=== PATIENT | female | born 1965 | race Caucasian/White ===

== ENCOUNTER 2018-09-18 12:08 | Emergency (ER) | payer SELFPAY ==
--- NOTE | 2018-09-18 15:37 | RAD REPORT ---
EXAM DESCRIPTION: CT - Head Brain Wo Cont - 09/18/2018 3:28 pm CLINICAL HISTORY: Headache COMPARISON: None. TECHNIQUE: Axial 5 mm thick images of the head were obtained without IV contrast. All CT scans are performed using dose optimization technique as appropriate and may include automated exposure control or mA/KV adjustment according to patient size. FINDINGS: No intracranial hemorrhage, mass, edema or shift of mid-line structures. No acute infarcti on changes seen. No abnormal extra-axial fluid collections. Ventricles are normal. Mastoid air cells and visualized portions of the paranasal sinuses are clear. No acute bony findings. IMPRESSION: Negative non-contrast CT head examination.
--- NOTE | 2018-09-18 16:10 | ER ---
Nurse's Notes [facility] Name: Charlene Lora Age: 52 yrs Sex: Female : 1965 Arrival Date: 09/18/2018 Time: 12:10 Bed 12 Private MD: Diagnosis: Radiculopathy, cervical region Presentation: 09/18 12:55 Presenting complaint: Patient states: Headache on R side since Tuesday, also reports ph neck pain and sore throat, denies fever, N/V. Transition of care: patient was not received from another setting of care. Onset of symptoms was September 18, 2018. Risk Assessment: Do you want to hurt yourself or someone else? Patient reports no desire to harm self or others. Care prior to arrival: None. 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 Vital Signs: 12:58 BP 114 / 85; Pulse 72; Resp 18; Temp 98.5; Pulse Ox 99% on R/A; Weight 56.7 kg; Height ph 5 ft. 6 in. (167.64 cm); 12:58 Body Mass Index 20.18 (56.70 kg, 167.64 cm) ph ED Course: 12:10 Patient arrived in ED. as 12:58 Triage completed. ph 12:59 Arm band placed on. ph 15:15 Palmira Harper FNP-C is [facility]. snw 15:15 Andrew Saba MD is Attending Physician. snw 15:[address] nj 15:[address] via wheelchair. nj 15:26 CT completed. Patient tolerated procedure well. Patient moved back from CT. nj 15:28 CT Head Brain wo Cont In Process Unspecified. EDMS 15:28 Krista He RN is Primary Nurse. tl3 Administered Medications: 16:41 Drug: Flexeril 10 mg Route: PO; tl3 16:42 Follow up: Response: Medication administered at discharge. tl3 16:42 Drug: TORadol 60 mg Route: IM; Site: right gluteus; tl3 16:42 Follow up: Response: Medication administered at discharge. tl3 Outcome: 16:10 Discharge ordered by MD. mosley 16:43 Patient left the ED. tl3 Signatures: Dispatcher [employer] EDPalmira Li, [employer] BOARD DRAFTER-Anita Quezada Patricia, RN RN [facility], Krista Lee, BJ RN tl3
--- NOTE | 2018-09-18 16:10 | EDPHYS ---
Physician Documentation [facility] Name: Charlene Lora Age: 52 yrs Sex: Female : 1965 Arrival Date: 09/18/2018 Time: 12:10 Bed 12 Private MD: ED Physician Andrew Saba HPI: 09/18 16:13 This 52 yrs old Female presents to ER via Ambulatory with complaints of snw Headache, Neck Pain, >24Hrs Old. 16:13 The patient complains of pain to the top of head and forehead. The patient describes snw the headache as a pressure, numbness. Onset: The symptoms/episode began/occurred gradually, 3 day(s) ago, and became persistent. Associated signs and symptoms: The patient has no apparent associated signs or symptoms. Severity of symptoms: At its worst the pain was mild, moderate. Headache History: Denies prior headaches. the symptoms are aggravated by wearing hard hat too tight. The patient has not experienced similar symptoms in the past. The patient has not recently seen a physician. 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 ROS: 16:12 Constitutional: Negative for fever, chills, and weight loss, Eyes: Negative for injury, snw pain, redness, and discharge, ENT: Negative for injury, pain, and discharge, Cardiovascular: Negative for chest pain, palpitations, and edema, Respiratory: Negative for shortness of breath, cough, wheezing, and pleuritic chest pain, Abdomen/GI: Negative for abdominal pain, nausea, vomiting, diarrhea, and constipation, Back: Negative for injury and pain, : Negative for injury, bleeding, discharge, and swelling, MS/Extremity: Negative for injury and deformity, Skin: Negative for injury, rash, and discoloration, Neuro: Negative for headache, weakness, numbness, tingling, and seizure. 16:12 Neck: Positive for pain with movement, pain at rest, stiffness, tenderness, posterior neck up into scalp with some paresthesias. Exam: 16:11 Constitutional: This is a well developed, well nourished patient who is awake, alert, snw and in no acute distress. Head/Face: Normocephalic, atraumatic. Eyes: Pupils equal round and reactive to light, extra-ocular motions intact. Lids and lashes normal. Conjunctiva and sclera are non-icteric and not injected. Cornea within normal limits. Periorbital areas with no swelling, redness, or edema. ENT: Nares patent. No nasal discharge, no septal abnormalities noted. Tympanic membranes are normal and external auditory canals are clear. Oropharynx with no redness, swelling, or masses, exudates, or evidence of obstruction, uvula midline. Mucous membranes moist. Chest/axilla: Normal chest wall appearance and motion. Nontender with no deformity. No lesions are appreciated. Cardiovascular: Regular rate and rhythm with a normal S1 and S2. No gallops, murmurs, or rubs. Normal PMI, no JVD. No pulse deficits. Respiratory: Lungs have equal breath sounds bilaterally, clear to auscultation and percussion. No rales, rhonchi or wheezes noted. No increased work of breathing, no retractions or nasal flaring. Abdomen/GI: Soft, non-tender, with normal bowel sounds. No distension or tympany. No guarding or rebound. No evidence of tenderness throughout. Back: No spinal tenderness. No costovertebral tenderness. Full range of motion. Skin: Warm, dry with normal turgor. Normal color with no rashes, no lesions, and no evidence of cellulitis. MS/ Extremity: Pulses equal, no cyanosis. Neurovascular intact. Full, normal range of motion. Neuro: Awake and alert, GCS 15, oriented to person, place, time, and situation. Cranial nerves II-XII grossly intact. Motor strength 5/5 in all extremities. Sensory grossly intact. Cerebellar exam normal. Normal gait. Psych: Awake, alert, with orientation to person, place and time. Behavior, mood, and affect are within normal limits. 16:11 Neck: External neck: is normal, C-spine: appears grossly normal, Thyroid: appears normal, Trachea: is midline with no obvious abnormalities, ROM/movement: is normal, Lymph nodes: no appreciated lymphadenopathy. Vital Signs: 12:58 BP 114 / 85; Pulse 72; Resp 18; Temp 98.5; Pulse Ox 99% on R/A; Weight 56.7 kg; Height ph 5 ft. 6 in. (167.64 cm); 12:58 Body Mass Index 20.18 (56.70 kg, 167.64 cm) ph MDM: 15:52 Patient medically screened. snw 16:13 Data reviewed: vital signs, nurses notes. Data interpreted: Pulse oximetry: on room air snw is 99 %. Interpretation: normal. Counseling: I had a detailed discussion with the patient and/or guardian regarding: the historical points, exam findings, and any diagnostic results supporting the discharge/admit diagnosis, the presence of at least one elevated blood pressure reading (>120/80) during this emergency department visit, the need for outpatient follow up, to return to the emergency department if symptoms worsen or persist or if there are any questions or concerns that arise at home. Special discussion: I have referred the patient to see his PCP for further evaluation of high blood pressure. Based on the history and exam findings, there is no indication for further emergent testing or inpatient evaluation. I discussed with the patient/guardian the need to see the back specialist for further evaluation of the symptoms. I discussed with the patient/guardian the need to see the primary care provider for further evaluation of the symptoms. 09/18 13:01 Order name: Strep; Complete Time: 15:15 ph 09/18 13:02 Order name: Flu; Complete Time: 15:15 ph 09/18 13:47 Order name: Throat Culture EDMS 09/18 15:51 Order name: Urine Microscopic Only snw 09/18 16:18 Order name: Urine Dipstick--Ancillary (enter results) bd 09/18 16:18 Order name: Urine --Ancillary (enter results) bd 09/18 15:16 Order name: CT Head Brain wo Cont; Complete Time: 15:51 snw 09/18 15:51 Order name: Urine Dipstick-Ancillary (obtain specimen); Complete Time: 23:31 snw Administered Medications: 16:41 Drug: Flexeril 10 mg Route: PO; tl3 16:42 Follow up: Response: Medication administered at discharge. tl3 16:42 Drug: TORadol 60 mg Route: IM; Site: right gluteus; tl3 16:42 Follow up: Response: Medication administered at discharge. tl3 Disposition: 09/18/18 16:10 Discharged to Home. Impression: Radiculopathy, cervical region. - Condition is Stable. - Discharge Instructions: Cervical Radiculopathy, Cryotherapy, Heat Therapy, Neck Exercises, Radicular Pain, Back Exercises. - Prescriptions for Voltaren 1 % Topical gel - apply 2 gram by TOPICAL route 4 times per day; 50 gram. orphenadrine citrate 100 mg Oral Tablet Sustained Release - take 1 tablet by ORAL route 2 times per day As needed; 20 tablet. - Work release form, Medication Reconciliation Form, Thank You Letter, Antibiotic Education, Prescription Opioid Use form. - Follow up: Private Physician; When: 2 - 3 days; Reason: Recheck today's complaints, Continuance of care, Re-evaluation by your physician. Follow up: Emergency Department; When: As needed; Reason: Worsening of condition. Addendum: 09/25/2018 11:47 Co-signature as Attending Physician, Andrew Saba MD. g s Signatures: Dispatcher [employer] EDTN Palmira Harper, DISHCLOTH FOLDER-C DISHCLOTH FOLDER-CsnFarideh Mireles RN RN Andrew Saba MD MD Krista He RN RN tl3 Corrections: (The following items were deleted from the chart) 09/18 16:43 16:10 09/18/2018 16:10 Discharged to Home. Impression: Radiculopathy, cervical region. tl3 Condition is Stable. Forms are Medication Reconciliation Form, Thank You Letter, Antibiotic Education, Prescription Opioid Use. Follow up: Private Physician; When: 2 - 3 days; Reason: Recheck today's complaints, Continuance of care, Re-evaluation by your physician. Follow up: Emergency Department; When: As needed; Reason: Worsening of condition. snw
[2018-09-18] MEDS ORDERED: CYCLOBENZAPRINE 10 MG TAB ONE (16:35)
[2018-09-18] MEDS ORDERED: KETOROLAC 30 MG/ML INJ ONE (16:35)
[2018-09-18 16:48] LABS: Urine Bacteria <20 /HPF (<20); Urine Culture Reflex Order REFLEXED; Urine RBC <5 /HPF (NONE SEEN)
[2018-09-18 17:19] LABS: Urine Blood NEGATIVE (NEG); Urine Glucose NEGATIVE (NEG); Urine Protein NEGATIVE (NEG)
[2018-09-18 17:43] VITALS: BP 114/85; TEMP 98.5; O2SAT 99
== END 2018-09-18 16:43 | disposition home or self-care (01) ==
LOC: ER 12:08
DX: M54.12 Radiculopathy, cervical region (principal); Z88.0 Allergy status to penicillin; Z91.040 Latex allergy status; F17.210 Nicotine dependence, cigarettes, uncomplicated
CPT/HCPCS: 70450; 81003; 81015; 81025; 87070; 87081; 87086; 87088; 87804; 96372; 99284

== ENCOUNTER 2018-10-24 09:08 | Emergency (ER) | payer SELFPAY ==
--- NOTE | 2018-10-24 10:02 | EDPHYS ---
Physician Documentation [facility] Name: Charlene Lora Age: 52 yrs Sex: Female : 1965 Arrival Date: 10/24/2018 Time: 09:11 Bed 13 Private MD: ED Physician Jose Mensah HPI: 10/24 09:59 This 52 yrs old Female presents to ER via Ambulatory with complaints of mony Facial Swelling, Toothache. 09:59 The patient presents with broken tooth/teeth, pain, swelling. The problem is located in mony the left jaw and face and left mandible. Onset: The symptoms/episode began/occurred 1 week(s) ago. Duration: The symptoms are continuous, but are steadily getting better. Modifying factors: The symptoms are alleviated by prescription meds, motrin. Associated signs and symptoms: The patient has no apparent associated signs or symptoms. Severity of symptoms: At their worst the symptoms were mild, moderate, in the emergency department the symptoms are unchanged. The patient has not experienced similar symptoms in the past. 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 - Social history:: Smoking status: Patient uses tobacco products, smokes one-half pack cigarettes per day. - Ebola Screening: : No symptoms or risks identified at this time. - Family history:: not pertinent. ROS: 09:59 Constitutional: Negative for fever, chills, and weight loss, Eyes: Negative for injury, mony pain, redness, and discharge, Neck: Negative for injury, pain, and swelling, Cardiovascular: Negative for chest pain, palpitations, and edema, Respiratory: Negative for shortness of breath, cough, wheezing, and pleuritic chest pain, Abdomen/GI: Negative for abdominal pain, nausea, vomiting, diarrhea, and constipation, Back: Negative for injury and pain, : Negative for injury, bleeding, discharge, and swelling, MS/Extremity: Negative for injury and deformity, Skin: Negative for injury, rash, and discoloration, Neuro: Negative for headache, weakness, numbness, tingling, and seizure. 09:59 ENT: Positive for of the left jaw. Exam: 09:59 Constitutional: This is a well developed, well nourished patient who is awake, alert, mony and in no acute distress. Eyes: Pupils equal round and reactive to light, extra-ocular motions intact. Lids and lashes normal. Conjunctiva and sclera are non-icteric and not injected. Cornea within normal limits. Periorbital areas with no swelling, redness, or edema. ENT: Nares patent. No nasal discharge, no septal abnormalities noted. Tympanic membranes are normal and external auditory canals are clear. Oropharynx with no redness, swelling, or masses, exudates, or evidence of obstruction, uvula midline. Mucous membranes moist. Neck: Trachea midline, no thyromegaly or masses palpated, and no cervical lymphadenopathy. Supple, full range of motion without nuchal rigidity, or vertebral point tenderness. No Meningismus. Chest/axilla: Normal chest wall appearance and motion. Nontender with no deformity. No lesions are appreciated. Cardiovascular: Regular rate and rhythm with a normal S1 and S2. No gallops, murmurs, or rubs. Normal PMI, no JVD. No pulse deficits. Respiratory: Lungs have equal breath sounds bilaterally, clear to auscultation and percussion. No rales, rhonchi or wheezes noted. No increased work of breathing, no retractions or nasal flaring. Abdomen/GI: Soft, non-tender, with normal bowel sounds. No distension or tympany. No guarding or rebound. No evidence of tenderness throughout. Back: No spinal tenderness. No costovertebral tenderness. Full range of motion. Female : Normal external genitalia. Skin: Warm, dry with normal turgor. Normal color with no rashes, no lesions, and no evidence of cellulitis. MS/ Extremity: Pulses equal, no cyanosis. Neurovascular intact. Full, normal range of motion. Neuro: Awake and alert, GCS 15, oriented to person, place, time, and situation. Cranial nerves II-XII grossly intact. Motor strength 5/5 in all extremities. Sensory grossly intact. Cerebellar exam normal. Normal gait. Psych: Awake, alert, with orientation to person, place and time. Behavior, mood, and affect are within normal limits. 09:59 Head/face: Noted is swelling, tenderness, that is mild, of the left jaw. Vital Signs: 09:15 BP 131 / 93; Pulse 70; Resp 18; Temp 97; Pulse Ox 100% ; Weight 56.7 kg; Height 5 ft. 6 sv in. (167.64 cm); Pain 7/10; 10:11 BP 130 / 90; Pulse 70; Resp 16 S; Pulse Ox 99% on R/A; Pain 7/10; jl7 09:15 Body Mass Index 20.18 (56.70 kg, 167.64 cm) sv MDM: 09:27 Patient medically screened. [facility] 09:59 Data reviewed: vital signs, nurses notes. [facility] Administered Medications: No medications were administered Disposition: 10/24/18 10:02 Discharged to Home. Impression: Dental caries, Dental caries, unspecified - odontogenic abscess, resolving, improved. - Condition is Stable. - Discharge Instructions: Dental Abscess, Dental Caries, Adult, Dental Pain, Dental Pain, [id number], Diet and Dental Disease, Dental Caries, [id number]. - Prescriptions for Tylenol- Codeine #3 300-30 mg Oral Tablet - take 2 tablets by ORAL route every 6 hours As needed; 20 tablet. - Medication Reconciliation Form, Thank You Letter, Antibiotic Education, Prescription Opioid Use form. - Follow up: Private Physician; When: 2 - 3 days; Reason: Recheck today's complaints, Continuance of care, Re-evaluation by your physician. Follow up: Magy Bishop DDS; When: Today; Reason: Recheck today's complaints, Continuance of care, Re-evaluation by your physician. - Problem is new. - Symptoms have improved. Signatures: Bernie Dumont, BJ RN Jose Silveira MD MD cha Leal, Jahala, RN RN jl7 Corrections: (The following items were deleted from the chart) 10:13 10:02 10/24/2018 10:02 Discharged to Home. Impression: Dental caries; Dental caries, jl7 unspecified - odontogenic abscess, resolving, improved. Condition is Stable. Forms are Medication Reconciliation Form, Thank You Letter, Antibiotic Education, Prescription Opioid Use. Follow up: Private Physician; When: 2 - 3 days; Reason: Recheck today's complaints, Continuance of care, Re-evaluation by your physician. Follow up: Magy Bishop; When: Today; Reason: Recheck today's complaints, Continuance of care, Re-evaluation by your physician. Problem is new. Symptoms have improved. mony
--- NOTE | 2018-10-24 10:02 | ER ---
Nurse's Notes [facility] Name: Charlene Lora Age: 52 yrs Sex: Female : 1965 Arrival Date: 10/24/2018 Time: 09:11 Bed 13 Private MD: Diagnosis: Dental caries;Dental caries, unspecified-odontogenic abscess, resolving, improved Presentation: 10/24 09:13 Presenting complaint: Patient states: left tooth pain, swelling and facial numbness. Pt sv was seen by her dentist and prescribed Clindamycin Tuesday. Sent here by dentist to get examined for numbness. Transition of care: patient was not received from another setting of care. Onset of symptoms was October 19, 2018. Care prior to arrival: None. 09:13 Method Of Arrival: Ambulatory sv 09:13 Acuity: YULIYA 3 sv 09:30 Risk Assessment: Do you want to hurt yourself or someone else? Patient reports no jl7 desire to harm self or others. Initial Sepsis Screen: Does the patient meet any 2 criteria? No. Patient's initial sepsis screen is negative. Does the patient have a suspected source of infection? No. Patient's initial sepsis screen is negative. Triage Assessment: 09:15 General: Appears in no apparent distress. uncomfortable, well developed, Behavior is sv calm, cooperative, appropriate for age. Pain: Complains of pain in left cheek and left mandible Pain currently is 7 out of 10 on a pain scale. EENT: Reports pain since left tooth. Neuro: Level of Consciousness is awake, alert, obeys commands, Oriented to person, place, time, situation, Moves all extremities. Full function Gait is steady, Speech is normal. Respiratory: Respiratory effort is even, unlabored, Respiratory pattern is regular, symmetrical. 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 - Social history:: Smoking status: Patient uses tobacco products, smokes one-half pack cigarettes per day. - Ebola Screening: : No symptoms or risks identified at this time. - Family history:: not pertinent. Screenin:31 Abuse screen: Denies threats or abuse. Denies injuries from another. Nutritional jl7 screening: No deficits noted. Tuberculosis screening: No symptoms or risk factors identified. Fall Risk None identified. Assessment: 09:31 General: Appears in no apparent distress. uncomfortable, Behavior is calm, cooperative, jl7 appropriate for age. Pain: Complains of pain in left mandible Pain does not radiate. Pain currently is 7 out of 10 on a pain scale. Is continuous. Neuro: Level of Consciousness is awake, alert, obeys commands, Oriented to person, place, time, situation, Numbness in chin and left jaw. Cardiovascular: Patient's skin is warm and dry. Respiratory: Airway is patent Respiratory effort is even, unlabored, Respiratory pattern is regular, symmetrical. Derm: Skin is pink, warm \T\ dry. Vital Signs: 09:15 BP 131 / 93; Pulse 70; Resp 18; Temp 97; Pulse Ox 100% ; Weight 56.7 kg; Height 5 ft. 6 sv in. (167.64 cm); Pain 7/10; 10:11 BP 130 / 90; Pulse 70; Resp 16 S; Pulse Ox 99% on R/A; Pain 7/10; jl7 09:15 Body Mass Index 20.18 (56.70 kg, 167.64 cm) sv ED Course: 09:11 Patient arrived in ED. tw3 09:14 Triage completed. sv 09:15 Arm band placed on. sv 09:20 Roseanna Templeton RN is Primary Nurse. jl7 09:27 Jose Mensah MD is Attending Physician. [facility] 09:31 Patient has correct armband on for positive identification. jl7 10:01 Magy Bishop DDS is Referral Physician. mony 10:13 No provider procedures requiring assistance completed. Patient did not have IV access jl7 during this emergency room visit. Administered Medications: No medications were administered Outcome: 10:02 Discharge ordered by . mony 10:13 Discharged to home ambulatory. jl7 10:13 Condition: stable 10:13 Discharge instructions given to patient, Instructed on discharge instructions, follow up and referral plans. medication usage, Demonstrated understanding of instructions, follow-up care, medications, Prescriptions given X 1. 10:13 Patient left the ED. jl7 Signatures: Bernie Dumont RN RN Jose Mensah MD MD cha Leal, Jahala, BJ RN jl7 Joey, Ree tw3
[2018-10-24 10:18] VITALS: TEMP 97
[2018-10-24 10:20] VITALS: BP 130/90; O2SAT 99
== END 2018-10-24 10:13 | disposition home or self-care (01) ==
LOC: ER 09:08
DX: K02.9 Dental caries, unspecified (principal); K04.7 Periapical abscess without sinus; F17.210 Nicotine dependence, cigarettes, uncomplicated
CPT/HCPCS: 99282

== ENCOUNTER 2020-06-28 17:47 | Emergency (ER) | payer SELFPAY ==
--- NOTE | 2020-06-28 18:16 | EDPHYS ---
Physician Documentation [facility] Name: Charlene Lora Age: 54 yrs Sex: Female : 1965 Arrival Date: 06/28/2020 Time: 17:50 Bed 14 Private MD: ED Physician Eddi Astudillo HPI: 06/28 18:13 This 54 yrs old Female presents to ER via Ambulatory with complaints of Rash. jm 18:13 The patient's rash thought to be caused by an unknown cause. The rash is located on the jmm right arm. Onset: The symptoms/episode began/occurred gradually, 6 day(s) ago. Associated signs and symptoms: Pertinent positives: itching, Pertinent negatives: difficulty breathing, fever, nausea, Pain swelling of lips, swelling of throat, swelling of tongue, vomiting. The patient has not experienced similar symptoms in the past. 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 - Social history:: Smoking status: Patient reports the use of cigarette tobacco products, smokes one-half pack cigarettes per day. ROS: 18:13 Constitutional: Negative for fever, chills, and weight loss, Cardiovascular: Negative jmm for chest pain, palpitations, and edema, Respiratory: Negative for shortness of breath, cough, wheezing, and pleuritic chest pain. 18:13 Skin: Positive for rash. 18:13 All other systems are negative. Exam: 18:13 Constitutional: This is a well developed, well nourished patient who is awake, alert, jmm and in no acute distress. Head/Face: atraumatic. Eyes: EOMI, no conjunctival erythema appreciated ENT: Moist Mucus Membranes Neck: Trachea midline, Supple Chest/axilla: Normal chest wall appearance and motion. Cardiovascular: Regular rate and rhythm. No edema appreciated Respiratory: Normal respirations, no respiratory distress appreciated Abdomen/GI: Non distended, soft Back: Normal ROM 18:13 Skin: rash noted to the right arm with linear lesions. 18:13 Neuro: Orientation: is normal, Mentation: is normal, Memory: is normal. 18:13 Psych: Behavior/mood is pleasant, cooperative. Vital Signs: 18:15 BP 137 / 88; Pulse 81; Resp 18; Temp 98.8(O); Pulse Ox 99% on R/A; Weight 61.23 kg; ks7 Height 5 ft. 6 in. (167.64 cm); Pain 0/10; 18:25 BP 117 / 78; Pulse 69; Resp 18; Pulse Ox 100% on R/A; Pain 0/10; ks7 18:15 Body Mass Index 21.79 (61.23 kg, 167.64 cm) ks7 MDM: 18:13 Patient medically screened. lorenzo 18:14 Data reviewed: vital signs, nurses notes. Counseling: I had a detailed discussion with lorenzo the patient and/or guardian regarding: the historical points, exam findings, and any diagnostic results supporting the discharge/admit diagnosis, the need for outpatient follow up, to return to the emergency department if symptoms worsen or persist or if there are any questions or concerns that arise at home. ED course: Patient is alert and non toxic in appearance in the ED. Patient is advised to follow up with pcp and otherwise given strict return precautions. Patient understood and agrees with the plan of care. . Administered Medications: No medications were administered Disposition: 18:41 Co-signature as Attending Physician, Eddi Astudillo MD. rn Disposition: 06/28/20 18:15 Discharged to Home. Impression: Rash and other nonspecific skin eruption. - Condition is Stable. - Discharge Instructions: Rash. - Prescriptions for Elimite 5 % Topical Cream - apply 1 application by TOPICAL route one time Wash after 12 hours.; 60 gram. Hydroxyzine HCl 25 mg Oral Tablet - take 1 tablet by ORAL route every 6 hours As needed; 30 tablet. Prednisone 20 mg Oral Tablet - take 3 tablet by ORAL route once daily for 5 days; 15 tablet. - Medication Reconciliation Form, Thank You Letter, Antibiotic Education, Prescription Opioid Use form. - Follow up: Private Physician; When: 2 - 3 days; Reason: Recheck today's complaints, Continuance of care, Re-evaluation by your physician. Signatures: Mickail, Julio C, PA PA jmm Astudillo, Eddi, MD MD rn Songcuan, Kortney, RN RN ks7 Corrections: (The following items were deleted from the chart) 18:26 18:15 06/28/2020 18:15 Discharged to Home. Impression: Rash and other nonspecific skin ks7 eruption. Condition is Stable. Forms are Medication Reconciliation Form, Thank You Letter, Antibiotic Education, Prescription Opioid Use. Follow up: Private Physician; When: 2 - 3 days; Reason: Recheck today's complaints, Continuance of care, Re-evaluation by your physician. lorenzo
--- NOTE | 2020-06-28 18:27 | ER ---
Nurse's Notes [facility] Name: Charlene Lora Age: 54 yrs Sex: Female : 1965 Arrival Date: 06/28/2020 Time: 17:50 Bed 14 Private MD: Diagnosis: Rash and other nonspecific skin eruption Presentation: 06/28 18:15 Chief complaint: Patient states: Rash to R arm, started last Tuesday. Red linear rash ks7 to R forearm. Coronavirus screen: Client denies travel out of the [place] in the last 14 days. At this time, the client does not indicate any symptoms associated with coronavirus-19. The client denies any previous COVID testing. Ebola Screen: Patient negative for fever greater than or equal to 101.5 degrees Fahrenheit, and additional compatible Ebola Virus Disease symptoms Patient denies exposure to infectious person. Patient denies travel to an Ebola-affected area in the 21 days before illness onset. Initial Sepsis Screen: Does the patient meet any 2 criteria? No. Patient's initial sepsis screen is negative. Does the patient have a suspected source of infection? No. Patient's initial sepsis screen is negative. Risk Assessment: Do you want to hurt yourself or someone else? Patient reports no desire to harm self or others. Onset of symptoms was June 21, 2020. 18:15 Method Of Arrival: Ambulatory ks7 18:15 Acuity: YULIYA 5 ks7 Triage Assessment: 18:18 General: Appears in no apparent distress. Behavior is calm, cooperative. Pain: Denies ks7 pain. Derm: Rash noted that is red, on right arm. 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 - Social history:: Smoking status: Patient reports the use of cigarette tobacco products, smokes one-half pack cigarettes per day. Screenin:19 Abuse screen: Denies threats or abuse. Denies injuries from another. Nutritional ks7 screening: No deficits noted. Tuberculosis screening: No symptoms or risk factors identified. Fall Risk None identified. Assessment: 18:19 General: Appears in no apparent distress. Behavior is calm, cooperative. Derm: Reports ks7 Rash to R forearm. 18:20 Derm: Reports denies itching, denies pain. ks7 Vital Signs: 18:15 BP 137 / 88; Pulse 81; Resp 18; Temp 98.8(O); Pulse Ox 99% on R/A; Weight 61.23 kg; ks7 Height 5 ft. 6 in. (167.64 cm); Pain 0/10; 18:25 BP 117 / 78; Pulse 69; Resp 18; Pulse Ox 100% on R/A; Pain 0/10; ks7 18:15 Body Mass Index 21.79 (61.23 kg, 167.64 cm) ks7 ED Course: 17:50 Patient arrived in ED. ag5 17:53 Julio C Mccain PA is PHCP. [facility] 17:53 Eddi Astudillo MD is Attending Physician. [facility] 18:15 Kortney Shukla, BJ is Primary Nurse. ks7 18:17 Triage completed. ks7 18:19 Resting quietly. ks7 18:19 Arm band placed on right wrist. ks7 18:19 Patient has correct armband on for positive identification. Bed in low position. Call ks7 light in reach. Side rails up X2. 18:19 No provider procedures requiring assistance completed. Patient did not have IV access ks7 during this emergency room visit. Administered Medications: No medications were administered Outcome: 18:15 Discharge ordered by . [facility] 18:26 Discharged to home ambulatory. ks7 18:26 Condition: good 18:26 Discharge instructions given to patient, Instructed on discharge instructions, medication usage, Demonstrated understanding of instructions, medications, Prescriptions given X 3. 18:26 Patient left the ED. ks7 Signatures: Julio C Mccain PA PA jmm Gaskin, Ajare ag5 Kortney Shukla, BJ RN [facility]
[2020-06-28 18:40] VITALS: BP 117/78; O2SAT 100
[2020-06-28 18:42] VITALS: TEMP 98.8
== END 2020-06-28 18:26 | disposition home or self-care (01) ==
LOC: ER 17:47
DX: R21 Rash and other nonspecific skin eruption (principal); F17.210 Nicotine dependence, cigarettes, uncomplicated; Z88.0 Allergy status to penicillin; Z88.8 Allergy status to other drugs, medicaments and biological substances; Z91.040 Latex allergy status
CPT/HCPCS: 99282

== ENCOUNTER 2020-07-06 10:08 | Emergency (ER) | payer SELFPAY ==
--- NOTE | 2020-07-06 10:39 | ER ---
Nurse's Notes [facility] Name: Charlene Lora Age: 54 yrs Sex: Female : 1965 Arrival Date: 07/06/2020 Time: 10:12 Bed Waiting Private MD: Diagnosis: Rash and other nonspecific skin eruption Presentation: 07/06 10:27 Chief complaint: Worsening rash after using Permethrin cream 2 days ago. Coronavirus hb screen: At this time, the client does not indicate any symptoms associated with coronavirus-19. Ebola Screen: No symptoms or risks identified at this time. Initial Sepsis Screen: Does the patient meet any 2 criteria? No. Patient's initial sepsis screen is negative. Does the patient have a suspected source of infection? No. Patient's initial sepsis screen is negative. Risk Assessment: Do you want to hurt yourself or someone else? Patient reports no desire to harm self or others. Onset of symptoms was June 2020. 10:27 Method Of Arrival: Ambulatory hb 10:27 Acuity: YULIYA 4 hb Triage Assessment: 10:29 General: Appears in no apparent distress. Behavior is cooperative, anxious, crying. hb Pain: Pain currently is 2 out of 10 on a pain scale. EENT: No signs and/or symptoms were reported regarding the EENT system. Neuro: Level of Consciousness is awake, alert, obeys commands, Oriented to person, place, time, situation. Cardiovascular: Patient's skin is warm and dry. Respiratory: Respiratory effort is even, unlabored, Respiratory pattern is regular, symmetrical. GI: No signs and/or symptoms were reported involving the gastrointestinal system. : No signs and/or symptoms were reported regarding the genitourinary system. Derm: Skin is pink, warm \T\ dry. Rash noted that is chest, neck, and arms. Musculoskeletal: No signs and/or symptoms reported regarding the musculoskeletal system. 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 - Social history:: Smoking status: Patient denies any tobacco usage or history of. Screenin:30 Abuse screen: Denies threats or abuse. Denies injuries from another. Nutritional hb screening: No deficits noted. Tuberculosis screening: No symptoms or risk factors identified. Fall Risk None identified. Assessment: 10:30 General: SEE TRIAGE . hb Vital Signs: 10:32 BP 117 / 86; Pulse 76; Resp 16; Temp 98.2; Pulse Ox 100% on R/A; Weight 58.97 kg; hb Height 5 ft. 6 in. (167.64 cm); Pain 9/10; 10:32 Body Mass Index 20.98 (58.97 kg, 167.64 cm) hb ED Course: 10:12 Patient arrived in ED. mr 10:25 Daniel Albarran NP is PHCP. pm1 10:25 Fanny Phillips MD is Attending Physician. pm1 10:29 Triage completed. hb 10:30 Arm band placed on. hb 10:30 Patient has correct armband on for positive identification. hb 10:30 No provider procedures requiring assistance completed. Patient did not have IV access hb during this emergency room visit. Administered Medications: No medications were administered Outcome: 10:39 Discharge ordered by MD. pm1 10:59 Discharged to home ambulatory. hb 10:59 Condition: stable 10:59 Discharge instructions given to patient, Instructed on discharge instructions, follow up and referral plans. medication usage, Demonstrated understanding of instructions, follow-up care, medications, Prescriptions given X 2. 11:00 Patient left the ED. hb Signatures: Desiree Camacho mr Daniel Albarran, SAROJ ANNUAL GIVING MANAGER pm1 Sheryl Blair, RN RN hb
--- NOTE | 2020-07-06 10:39 | EDPHYS ---
Physician Documentation [facility] Name: Charlene Lora Age: 54 yrs Sex: Female : 1965 Arrival Date: 07/06/2020 Time: 10:12 Bed Waiting Private MD: ED Physician Fanny Phillips HPI: 07/06 10:37 This 54 yrs old Female presents to ER via Ambulatory with complaints of pm1 Scabies. 10:37 The patient's rash thought to be caused by scabies. pm1 10:37 The rash is located on the upper chest, right arm and left arm. The rash can be pm1 described as raised. Onset: The symptoms/episode began/occurred 2 day(s) ago. Associated signs and symptoms: Pertinent positives: itching, Pertinent negatives: fever, Pain. Severity of symptoms: in the emergency department the symptoms are worse. Treatment given at home: None. Patient DX with nonspecific rash about 1 week ago discharged home with permethrin, steroids and hydroxyzine. Patient used the Elimite cream and then saw some possible scabies maldonado in her arm after treatment so she applied the medication two more days in a row. 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 - Social history:: Smoking status: Patient denies any tobacco usage or history of. ROS: 10:37 Constitutional: Negative for fever, chills, and weight loss, Cardiovascular: Negative pm1 for chest pain, palpitations, and edema, Respiratory: Negative for shortness of breath, cough, wheezing, and pleuritic chest pain, Abdomen/GI: Negative for abdominal pain, nausea, vomiting, diarrhea, and constipation, Back: Negative for injury and pain, MS/Extremity: Negative for injury and deformity. 10:37 Neuro: Negative for headache, weakness, numbness, tingling, and seizure. 10:37 Skin: Positive for rash, of the upper chest, left forearm, and right forearm. Exam: 10:37 Constitutional: This is a well developed, well nourished patient who is awake, alert, pm1 and in no acute distress. Head/Face: Normocephalic, atraumatic. 10:37 Cardiovascular: Exam negative for acute changes, Rate: normal, Rhythm: regular, Pulses: no pulse deficits are appreciated. 10:37 Respiratory: Exam negative for acute changes, respiratory distress, shortness of breath. 10:37 Skin: consistent with contact dermatitis, on the dorsal aspect of right forearm and left forearm and upper chest. 10:37 Neuro: Exam negative for acute changes, Orientation: is normal, Motor: is normal, moves all fours. Vital Signs: 10:32 BP 117 / 86; Pulse 76; Resp 16; Temp 98.2; Pulse Ox 100% on R/A; Weight 58.97 kg; hb Height 5 ft. 6 in. (167.64 cm); Pain 9/10; 10:32 Body Mass Index 20.98 (58.97 kg, 167.64 cm) hb MDM: 10:37 Counseling: I had a detailed discussion with the patient and/or guardian regarding: the pm1 historical points, exam findings, and any diagnostic results supporting the discharge/admit diagnosis, the need for outpatient follow up, for definitive care, a automatic buffer, to return to the emergency department if symptoms worsen or persist or if there are any questions or concerns that arise at home. 10:37 Data reviewed: vital signs. Data interpreted: Pulse oximetry: on room air is 100 %. pm1 Interpretation: normal. 10:37 ED course: Patient is convinced that she has a scabies infestation at her home and on pm1 her skin. She is looking for a skin scraping of her skin to verify the scabies species and would like admission for treatment. Patient's rash likely appears to be contact dermatitis. Unable to convince the patient that likely not scabies infection but will prescribe permethrin with detail instructions and follow up dermatology information. 10:39 Patient medically screened. pm1 Administered Medications: No medications were administered Disposition: 18:23 Co-signature as Attending Physician, Fanny Phillips MD. ma2 Disposition: 07/06/20 10:39 Discharged to Home. Impression: Rash and other nonspecific skin eruption. - Condition is Stable. - Discharge Instructions: Rash, Scabies, Adult. - Prescriptions for Elimite 5 % Topical Cream - apply 1 application by TOPICAL route one time Apply from head to toe, leave on for 8-14 hours and rinse after 8-14 hours. May reapply in 7 days if live mites reappear; 60 gram. Medrol (Gordon) 4 mg Oral Tablets, Dose Pack - take 1 tablet by ORAL route as directed - follow package instructions; 1 packet. - Medication Reconciliation Form, Thank You Letter, Antibiotic Education, Prescription Opioid Use, Work release form form. - Follow up: Emergency Department; When: As needed; Reason: Worsening of condition. Follow up: Private Physician; When: 2 - 3 days; Reason: Recheck today's complaints, Continuance of care, Re-evaluation by your physician. - Problem is new. - Symptoms have improved. Signatures: Daniel Albarran, TRACK MECHANIC TRACK MECHANIC pm1 Sheryl Blair RN RN hb Fanny Phillips MD MD ma2 Corrections: (The following items were deleted from the chart) 11:00 10:39 07/06/2020 10:39 Discharged to Home. Impression: Rash and other nonspecific skin hb eruption. Condition is Stable. Forms are Medication Reconciliation Form, Thank You Letter, Antibiotic Education, Prescription Opioid Use. Follow up: Emergency Department; When: As needed; Reason: Worsening of condition. Follow up: Private Physician; When: 2 - 3 days; Reason: Recheck today's complaints, Continuance of care, Re-evaluation by your physician. Problem is new. Symptoms have improved. pm1 15:17 10:37 This 54 yrs old Female presents to ER via Ambulatory with complaints of pm1 Scapies. pm1
[2020-07-06 11:11] VITALS: BP 117/86; TEMP 98.2; O2SAT 100
== END 2020-07-06 11:00 | disposition home or self-care (01) ==
LOC: ER 10:08
DX: R21 Rash and other nonspecific skin eruption (principal); Z88.0 Allergy status to penicillin; Z91.040 Latex allergy status; Z91.048 Other nonmedicinal substance allergy status
CPT/HCPCS: 99282

== ENCOUNTER 2021-04-02 11:56 | Emergency (ER) | payer SELFPAY ==
--- NOTE | 2021-04-02 13:06 | EDPHYS ---
Physician Documentation [facility] Name: Charlene Lora Age: 55 yrs Sex: Female : 1965 Arrival Date: 04/02/2021 Time: 12:00 Bed 27 Private MD: ED Physician Jose Mensah HPI: 04/02 16:13 This 55 yrs old Female presents to ER via Ambulatory with complaints of jr8 Finger infection. 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 Had a jr8 couple of cuts on left hand that now look infected. Stated that her right thumb at the CMC and MCP is also swollen . Severity of symptoms: At their worst the symptoms were mild in the emergency department the symptoms are unchanged. The patient has not experienced similar symptoms in the past. The patient has not recently seen a physician. Historical: - Allergies: 12:19 PENICILLINS; jl7 12:19 Latex, Natural Rubber; jl7 12:19 Alcohol in D5W; jl7 - Home Meds: 12:19 None [Active]; jl7 - PMHx: 12:19 None; jl7 - PSHx: 12:19 None; jl7 - Immunization history:: Adult Immunizations not up to date. - Social history:: Smoking status: Patient reports the use of cigarette tobacco products, smokes one-half pack cigarettes per day. ROS: 16:13 Eyes: Negative for injury, pain, redness, and discharge, ENT: Negative for injury, jr8 pain, and discharge, Neck: Negative for injury, pain, and swelling, Cardiovascular: Negative for chest pain, palpitations, and edema, Respiratory: Negative for shortness of breath, cough, wheezing, and pleuritic chest pain, Abdomen/GI: Negative for abdominal pain, nausea, vomiting, diarrhea, and constipation, Back: Negative for injury and pain, Neuro: Negative for headache, weakness, numbness, tingling, and seizure. 16:13 MS/extremity: Positive for pain, swelling, tenderness, of the right thumb. 16:13 Skin: Positive for erythema, swelling, of the left little finger and left middle finger. Exam: 16:13 Constitutional: This is a well developed, well nourished patient who is awake, alert, jr8 and in no acute distress. Cardiovascular: Regular rate and rhythm with a normal S1 and S2. No gallops, murmurs, or rubs. Normal PMI, no JVD. No pulse deficits. Respiratory: Lungs have equal breath sounds bilaterally, clear to auscultation and percussion. No rales, rhonchi or wheezes noted. No increased work of breathing, no retractions or nasal flaring. Neuro: Awake and alert, GCS 15, oriented to person, place, time, and situation. Motor strength 5/5 in all extremities. 16:13 Musculoskeletal/extremity: Extremities: grossly normal except: noted in the left middle finger: paronychia present without exudate, noted in the left little finger: small less than 1 cm scabbed, slightly red injury noted , noted in the right thumb: mild swelling and tenderness noted to the MCP and CMC 1st digit with full ROM present , Circulation is intact in all extremities. Sensation intact. Vital Signs: 12:17 BP 132 / 91; Pulse 74; Resp 17; Temp 97.5; Pulse Ox 98% ; Weight 58.97 kg; Height 5 ft. jl7 6 in. (167.64 cm); Pain 5/10; 13:04 BP 128 / 90; Pulse 78; Resp 18; Temp 97.9(TE); Pulse Ox 99% on R/A; Pain 7/10; ld1 12:17 Body Mass Index 20.98 (58.97 kg, 167.64 cm) jl7 MDM: 12:51 Patient medically screened. jr8 13:02 Data reviewed: vital signs, nurses notes, and as a result, I will discharge patient. jr8 Data interpreted: Pulse oximetry: on room air is 98 %. Interpretation: normal. Counseling: I had a detailed discussion with the patient and/or guardian regarding: the historical points, exam findings, and any diagnostic results supporting the discharge/admit diagnosis, the need for outpatient follow up, a family practitioner, to return to the emergency department if symptoms worsen or persist or if there are any questions or concerns that arise at home. Administered Medications: No medications were administered Disposition: 04/02/21 13:05 Discharged to Home. Impression: Local infection of the skin and subcutaneous tissue, unspecified, Osteoarthritis of first carpometacarpal joint. - Condition is Stable. - Discharge Instructions: Paronychia. - Prescriptions for meloxicam 15 mg Oral tablet - take 1 tablet by ORAL route once daily As needed; 20 tablet. Bactrim DS 800- 160 mg Oral Tablet - take 1 tablet by ORAL route every 12 hours for 7 days; 14 tablet. - Medication Reconciliation Form, Thank You Letter, Antibiotic Education, Prescription Opioid Use form. - Follow up: Private Physician; When: 1 week; Reason: Recheck today's complaints, Continuance of care, Re-evaluation by your physician. - Problem is new. - Symptoms have improved. Addendum: 04/04/2021 07:39 Co-signature as Attending Physician, Jose Mensah MD I agree with the assessment and c fields plan of care. Signatures: Jose Mensah MD MD cha Roszak, Josh, PA PA jr8 Roseanna Templeton RN RN jl7 Leslye Metcalf RN RN ld1 Corrections: (The following items were deleted from the chart) 04/02 13:14 13:05 04/02/2021 13:05 Discharged to Home. Impression: Local infection of the skin and ld1 subcutaneous tissue, unspecified; Osteoarthritis of first carpometacarpal joint. Condition is Stable. Forms are Medication Reconciliation Form, Thank You Letter, Antibiotic Education, Prescription Opioid Use. Follow up: Private Physician; When: 1 week; Reason: Recheck today's complaints, Continuance of care, Re-evaluation by your physician. Problem is new. Symptoms have improved. jr8
--- NOTE | 2021-04-02 13:06 | ER ---
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 Coronavirus screen: Client denies travel out of the [place] in the last 14 days. At this time, the client does not indicate any symptoms associated with coronavirus-19. Ebola Screen: No symptoms or risks identified at this time. Initial Sepsis Screen: Does the patient meet any 2 criteria? No. Patient's initial sepsis screen is negative. Does the patient have a suspected source of infection? No. Patient's initial sepsis screen is negative. Risk Assessment: Do you want to hurt yourself or someone else? Patient reports no desire to harm self or others. Onset of symptoms was March 28, 2021. Care prior to arrival: None. 12:17 Method Of Arrival: Ambulatory jl7 12:17 Acuity: YULIYA 4 jl7 Triage Assessment: 12:19 General: Appears in no apparent distress. uncomfortable, Behavior is calm, cooperative, jl7 appropriate for age. Pain: Complains of pain in left middle finger and left little finger. Historical: - Allergies: 12:19 PENICILLINS; jl7 12:19 Latex, Natural Rubber; jl7 12:19 Alcohol in D5W; jl7 - Home Meds: 12:19 None [Active]; jl7 - PMHx: 12:19 None; jl7 - PSHx: 12:19 None; jl7 - Immunization history:: Adult Immunizations not up to date. - Social history:: Smoking status: Patient reports the use of cigarette tobacco products, smokes one-half pack cigarettes per day. Screenin:04 Abuse screen: Denies threats or abuse. Denies injuries from another. Nutritional ld1 screening: No deficits noted. Tuberculosis screening: No symptoms or risk factors identified. Fall Risk None identified. Assessment: 13:04 General: Appears in no apparent distress. comfortable, Behavior is calm, cooperative, ld1 appropriate for age. Pain: Complains of pain in left middle finger and left little finger Pain does not radiate. Pain currently is 7 out of 10 on a pain scale. Quality of pain is described as throbbing, Pain began 1 day ago. Is continuous. Neuro: Level of Consciousness is awake, alert, obeys commands, Oriented to person, place, time, situation. Cardiovascular: Capillary refill < 3 seconds Patient's skin is warm and dry. Respiratory: Airway is patent Respiratory effort is even, unlabored, Respiratory pattern is regular, symmetrical. GI: Abdomen is flat, non-distended. : No signs and/or symptoms were reported regarding the genitourinary system. EENT: No signs and/or symptoms were reported regarding the EENT system. Derm: No signs and/or symptoms reported regarding the dermatologic system. Musculoskeletal: No signs and/or symptoms reported regarding the musculoskeletal system. Vital Signs: 12:17 BP 132 / 91; Pulse 74; Resp 17; Temp 97.5; Pulse Ox 98% ; Weight 58.97 kg; Height 5 ft. jl7 6 in. (167.64 cm); Pain 5/10; 13:04 BP 128 / 90; Pulse 78; Resp 18; Temp 97.9(TE); Pulse Ox 99% on R/A; Pain 7/10; ld1 12:17 Body Mass Index 20.98 (58.97 kg, 167.64 cm) jl7 ED Course: 12:00 Patient arrived in ED. mr 12:18 Triage completed. jl7 12:19 Arm band placed on right wrist. jl7 12:51 Carlos Melendez PA is PHCP. jr8 12:51 Jose Mensah MD is Attending Physician. jr8 13:01 Leslye Metcalf, BJ is Primary Nurse. ld1 13:04 Patient has correct armband on for positive identification. Bed in low position. Call ld1 light in reach. Side rails up X 1. Pulse ox on. NIBP on. 13:04 No provider procedures requiring assistance completed. Patient did not have IV access ld1 during this emergency room visit. Administered Medications: No medications were administered Outcome: 13:05 Discharge ordered by . jr8 13:14 Discharged to home ld1 13:14 Condition: stable 13:14 Discharge instructions given to patient, Instructed on discharge instructions, follow up and referral plans. medication usage, Demonstrated understanding of instructions, follow-up care, medications. 13:14 Patient left the ED. ld1 Signatures: Desiree Camacho mr Carlos Melendez PA PA jr8 Leal, Jahala, RN RN jl7 Leslye Metcalf RN RN ld1
[2021-04-02 13:22] VITALS: BP 128/90; TEMP 97.9; O2SAT 99
== END 2021-04-02 13:14 | disposition home or self-care (01) ==
LOC: ER 11:56
DX: L03.012 Cellulitis of left finger (principal); M18.9 Osteoarthritis of first carpometacarpal joint, unspecified; F17.210 Nicotine dependence, cigarettes, uncomplicated; Z88.0 Allergy status to penicillin; Z91.040 Latex allergy status; Z91.048 Other nonmedicinal substance allergy status
CPT/HCPCS: 99283

== ENCOUNTER 2021-06-24 08:46 | Emergency (ER) | payer SELFPAY ==
--- NOTE | 2021-06-24 09:15 | EDPHYS ---
Physician Documentation [facility] Name: Charlene Lora Age: 55 yrs Sex: Female : 1965 Arrival Date: 06/24/2021 Time: 08:48 Bed 7 Private MD: TIAGO Physician Jose Mensah HPI: 06/24 09:16 This 55 yrs old Female presents to ER via Ambulatory with complaints of jr8 Allergic Reaction. 09:16 Onset: The symptoms/episode began/occurred gradually. Associated signs and symptoms: jr8 Pertinent positives: rash. Possible causes: The patient has no known obvious cause for the symptoms. Severity of symptoms: At their worst the symptoms were mild in the emergency department the symptoms are unchanged. The patient has experienced a previous episode. The patient has not recently seen a physician. 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 Stated that her hands become very dry and has broken out into a rash on the dorsum of her hands. Has tried topical steroids amongst other ivjo-axa-lynqltg creams and salves without any relief. Came to the emergency room for further evaluation at this time.. Historical: - Allergies: 09:01 Latex, Natural Rubber; ss 09:01 PENICILLINS; ss - PMHx: 09:01 None; ss - PSHx: 09:01 Hysterecomy; ss - Immunization history:: Adult Immunizations up to date, Client reports having NOT received the Covid vaccine. - Social history:: Smoking status: Patient reports the use of cigarette tobacco products, smokes one-half pack cigarettes per day. ROS: 09:16 Constitutional: Negative for fever, chills, and weight loss, MS/Extremity: Negative for jr8 injury and deformity. 09:16 Skin: Positive for rash. 09:16 All other systems are negative. Exam: 09:16 Constitutional: This is a well developed, well nourished patient who is awake, alert, jr8 and in no acute distress. Cardiovascular: Regular rate and rhythm with a normal S1 and S2. No gallops, murmurs, or rubs. Normal PMI, no JVD. No pulse deficits. Respiratory: Lungs have equal breath sounds bilaterally, clear to auscultation and percussion. No rales, rhonchi or wheezes noted. No increased work of breathing, no retractions or nasal flaring. MS/ Extremity: Pulses equal, no cyanosis. Neurovascular intact. Full, normal range of motion. Neuro: Awake and alert, GCS 15, oriented to person, place, time, and situation Motor strength 5/5 in all extremities. Sensory grossly intact. 09:16 Skin: Patient has patient has eczematous and excoriated rash to the dorsum of both hands. No signs of infection. No vesicles or pustules noted.. Vital Signs: 08:58 BP 132 / 83; Pulse 67; Resp 18; Temp 97.4(TE); Pulse Ox 99% on R/A; Weight 56.7 kg; ss Height 5 ft. 6 in. (167.64 cm); 08:58 Body Mass Index 20.18 (56.70 kg, 167.64 cm) ss MDM: 08:52 Patient medically screened. jr8 09:12 Data reviewed: vital signs, nurses notes, and as a result, I will discharge patient. jr8 Data interpreted: Pulse oximetry: on room air is 99 %. Interpretation: normal. 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 ED course: Asked with patient that we will start her on systemic steroids as she has tried all other zeyu-gub-nrcazui medications at this time. She needs to follow-up with dermatology for definitive care. If she were to get worse or start to have infectious signs come back for further evaluation. Patient good with this plan and will be discharged home.. Administered Medications: No medications were administered Disposition: 06/25 07:27 Co-signature as Attending Physician, Jose Mensah MD I agree with the assessment and mony plan of care. Disposition Summary: 06/24/21 09:15 Discharge Ordered Location: Home jr8 Problem: new jr8 Symptoms: have improved jr8 Condition: Stable jr8 Diagnosis - Unspecified contact dermatitis, unspecified cause jr8 Followup: jr8 - With: Private Physician - When: 1 week - Reason: Recheck today's complaints, Continuance of care, Re-evaluation by your physician Discharge Instructions: - Discharge Summary Sheet jr8 - Contact Dermatitis jr8 Forms: - Medication Reconciliation Form jr8 - Thank You Letter jr8 - Antibiotic Education jr8 - Prescription Opioid Use jr8 Prescriptions: - Prednisone 20 mg Oral Tablet - take 2 tablets by ORAL route once daily for 5 days; 10 tablet; Refills: 0, jr8 Product Selection Permitted Signatures: Jose Mensah MD MD cha Smirch, Shelby, RN RN ss Carlos Melendez PA PA jr8 Corrections: (The following items were deleted from the chart) 06/24 09:01 09:01 Allergies: Alcohol in D5W; ss ss
--- NOTE | 2021-06-24 09:15 | ER ---
Nurse's Notes [facility] Name: Charlene Lora Age: 55 yrs Sex: Female : 1965 Arrival Date: 06/24/2021 Time: 08:48 Bed 7 Private MD: Diagnosis: Unspecified contact dermatitis, unspecified cause Presentation: 06/24 08:58 Chief complaint: Patient states: cracked, redness, swelling and itching to bilateral ss hands that began 1 week ago after peeling shrimp. Coronavirus screen: Client denies travel out of the [place] in the last 14 days. Ebola Screen: Patient denies exposure to infectious person. Patient denies travel to an Ebola-affected area in the 21 days before illness onset. Onset: The symptoms/episode began/occurred 1 week(s) ago. Anaphylaxis evaluation, no signs or symptoms of anaphylaxis were noted. Initial Sepsis Screen: Does the patient meet any 2 criteria? No. Patient's initial sepsis screen is negative. Does the patient have a suspected source of infection? No. Patient's initial sepsis screen is negative. Risk Assessment: Do you want to hurt yourself or someone else? Patient reports no desire to harm self or others. Onset of symptoms was June 17, 2021. 08:58 Method Of Arrival: Ambulatory 08:58 Acuity: YULIYA 5 ss Historical: - Allergies: 09:01 Latex, Natural Rubber; ss 09:01 PENICILLINS; ss - PMHx: 09:01 None; ss - PSHx: 09:01 Hysterecomy; ss - Immunization history:: Adult Immunizations up to date, Client reports having NOT received the Covid vaccine. - Social history:: Smoking status: Patient reports the use of cigarette tobacco products, smokes one-half pack cigarettes per day. Screenin:25 Abuse screen: Denies threats or abuse. Nutritional screening: No deficits noted. jd3 Tuberculosis screening: No symptoms or risk factors identified. Fall Risk Ambulatory Aid- None/Bed Rest/Nurse Assist (0 pts). Gait- Normal/Bed Rest/Wheelchair (0 pts) Mental Status- Oriented to own ability (0 pts). Total Col[place]res Fall Scale indicates No Risk (0-24 pts). Assessment: 09:23 General: Appears in no apparent distress. comfortable, Behavior is calm, cooperative, jd3 appropriate for age. Pain: Complains of pain in right hand and left hand Quality of pain is described as stinging. Neuro: Level of Consciousness is awake, alert, obeys commands, Oriented to person, place, time, situation. Cardiovascular: Denies chest pain, Capillary refill < 3 seconds Patient's skin is warm and dry. Respiratory: Airway is patent Respiratory effort is even, unlabored, Respiratory pattern is regular, symmetrical, Denies cough, shortness of breath. GI: No signs and/or symptoms were reported involving the gastrointestinal system. : No signs and/or symptoms were reported regarding the genitourinary system. EENT: No signs and/or symptoms were reported regarding the EENT system. Derm: Skin is intact, Skin is dry, Skin is normal, Skin temperature is warm Rash noted that is itchy, red, on right hand and left hand. Musculoskeletal: Circulation, motion, and sensation intact. Range of motion: intact in all extremities. Vital Signs: 08:58 BP 132 / 83; Pulse 67; Resp 18; Temp 97.4(TE); Pulse Ox 99% on R/A; Weight 56.7 kg; ss Height 5 ft. 6 in. (167.64 cm); 08:58 Body Mass Index 20.18 (56.70 kg, 167.64 cm) ED Course: 08:48 Patient arrived in ED. mr 08:52 Carlos Melendez PA is PHCP. jr8 08:52 Jose Mensah MD is Attending Physician. jr8 09:00 Triage completed. 09:01 Declan Hart, RN is Primary Nurse. jd3 09:01 Arm band placed on right wrist. ss 09:25 Patient has correct armband on for positive identification. Bed in low position. Call jd3 light in reach. Side rails up X 1. Pulse ox on. NIBP on. 09:25 No provider procedures requiring assistance completed. Patient did not have IV access jd3 during this emergency room visit. Administered Medications: No medications were administered Outcome: 09:15 Discharge ordered by . jr8 09:25 Discharged to home ambulatory. jd3 09:25 Condition: stable 09:25 Discharge instructions given to patient, Instructed on discharge instructions, follow up and referral plans. medication usage, Demonstrated understanding of instructions, follow-up care, medications, Prescriptions given X 1. 09:26 Patient left the ED. jd3 Signatures: Desiree Camacho mr Nena Grullon RN RN ss Carlos Melendez PA PA jr8 Declan Hart RN RN jd3 Corrections: (The following items were deleted from the chart) 09:01 09:01 Allergies: Alcohol in D5W; ss ss
[2021-06-24 09:41] VITALS: BP 132/83; TEMP 97.4; O2SAT 99
== END 2021-06-24 09:26 | disposition home or self-care (01) ==
LOC: ER 08:46
DX: L25.9 Unspecified contact dermatitis, unspecified cause (principal); F17.210 Nicotine dependence, cigarettes, uncomplicated; Z88.0 Allergy status to penicillin; Z91.040 Latex allergy status; Z91.048 Other nonmedicinal substance allergy status
CPT/HCPCS: 99283

== ENCOUNTER 2021-09-14 08:59 | Emergency (ER) | payer SELFPAY ==
--- NOTE | 2021-09-14 09:54 | ER ---
Nurse's Notes [facility] Name: Charlene Lora Age: 55 yrs Sex: Female : 1965 Arrival Date: 09/14/2021 Time: 09:01 Bed 10 Private MD: Diagnosis: Allergic contact dermatitis, unspecified cause Presentation: 09/14 09:13 Chief complaint: Patient states: "I've had contact dermatitis on both my hands for aa5 about 6 months now and I don't know what else to do because I can't afford a stna". 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 Coronavirus screen: At this time, the client does not indicate any symptoms associated with coronavirus-19. Ebola Screen: No symptoms or risks identified at this time. Initial Sepsis Screen: Does the patient meet any 2 criteria? No. Patient's initial sepsis screen is negative. Does the patient have a suspected source of infection? No. Patient's initial sepsis screen is negative. Risk Assessment: Do you want to hurt yourself or someone else? Patient reports no desire to harm self or others. Onset of symptoms was August 2021. 09:13 Method Of Arrival: Ambulatory aa5 09:13 Acuity: YULIYA 4 aa5 Historical: - Allergies: 09:12 Latex, Natural Rubber; aa5 09:12 PENICILLINS; aa5 - PMHx: 09:15 None; aa5 - PSHx: 09:12 Hysterecomy; aa5 - Immunization history:: Client reports having NOT received the Covid vaccine. - Social history:: Smoking status: Patient reports the use of cigarette tobacco products, smokes one-half pack cigarettes per day. Screenin:31 Abuse screen: Denies threats or abuse. Denies injuries from another. Nutritional jt3 screening: No deficits noted. Tuberculosis screening: No symptoms or risk factors identified. Fall Risk None identified. Assessment: 09:30 Pain: Complains of pain in right hand and left hand Quality of pain is described as jt3 burning. Derm: Skin has blisters on Bilateral hands, cuts, peeling of skin. Reports burning. Vital Signs: 09:13 BP 123 / 73; Pulse 79; Resp 20 S; Temp 97.3(TE); Pulse Ox 99% on R/A; Weight 58.97 kg aa5 (R); Height 5 ft. 6 in. (167.64 cm) (R); 09:13 Body Mass Index 20.98 (58.97 kg, 167.64 cm) aa5 ED Course: 09:01 Patient arrived in ED. as 09:12 Arm band placed on. aa5 09:15 Triage completed. aa5 09:18 Carlos Melendez PA is PHCP. jr8 09:18 Camila Carter MD is Attending Physician. jr8 09:22 Vlad Lee, RN is Primary Nurse. jt3 09:31 Patient has correct armband on for positive identification. Call light in reach. jt3 09:31 No provider procedures requiring assistance completed. jt3 Administered Medications: No medications were administered Outcome: 09:53 Discharge ordered by . jr8 10:12 Discharged to home ambulatory. jt3 10:12 Condition: good 10:12 Discharge instructions given to patient, RN spoke with ELIZABETH Gonzalez about cephaelxin antibiotic and patient's penicillin allergy. Per ELIZABETH, okay to give the prescription. Pt. does did not know what her reaction is to penicillin, "I just do not take it." 10:16 Patient left the ED. jt3 Signatures: Anita Cagle Audri, RN RN aa5 Carlos Melendez PA PA jr8 Vlad Lee, RN RN jt3 Corrections: (The following items were deleted from the chart) 09:15 09:13 BP 123 / 73; Pulse 79bpm; Resp 20bpm; Spontaneous; Pulse Ox 99% RA; Temp 97.3F aa5 Temporal; aa5
--- NOTE | 2021-09-14 09:54 | EDPHYS ---
Physician Documentation [facility] Name: Charlene Lora Age: 55 yrs Sex: Female : 1965 Arrival Date: 09/14/2021 Time: 09:01 Bed 10 Private MD: ED Physician Camila Carter HPI: 09/14 10:25 This 55 yrs old Female presents to ER via Ambulatory with complaints of Hand jr8 Swelling. 10:25 This is a 55-year-old female that has persistent contact dermatitis and has been seen jr8 several times in the emergency room. Patient stated that after the last time we saw her she had improved with systemic steroids. Had follow-up with dermatology and they gave her triamcinolone cream. Stated that that has not really improved anything. 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 Patient stated that she finally quit 2 days ago and has since found another job. Patient stated that unfortunately the rash has come back and continues to persist despite the triamcinolone cream.. Historical: - Allergies: 09:12 Latex, Natural Rubber; aa5 09:12 PENICILLINS; aa5 - PMHx: 09:15 None; aa5 - PSHx: 09:12 Hysterecomy; aa5 - Immunization history:: Client reports having NOT received the Covid vaccine. - Social history:: Smoking status: Patient reports the use of cigarette tobacco products, smokes one-half pack cigarettes per day. ROS: 10:25 Constitutional: Negative for fever, chills, and weight loss. jr8 10:25 Skin: Positive for erythema, rash. 10:25 All other systems are negative. Exam: 10:25 Constitutional: This is a well developed, well nourished patient who is awake, alert, jr8 and in no acute distress. Cardiovascular: Regular rate and rhythm with a normal S1 and S2. No gallops, murmurs, or rubs. Normal PMI, no JVD. No pulse deficits. Respiratory: Lungs have equal breath sounds bilaterally, clear to auscultation and percussion. No rales, rhonchi or wheezes noted. No increased work of breathing, no retractions or nasal flaring. MS/ Extremity: Pulses equal, no cyanosis. Neurovascular intact. Full, normal range of motion. Neuro: Awake and alert, GCS 15, oriented to person, place, time, and situation. Motor strength 5/5 in all extremities. Sensory grossly intact. 10:25 Skin: Patient has dry scaly skin to the palms and dorsal surfaces of the left and right hand. Cracking and fissures noted from the dryness. No bullae or vesicles noted no papular macular-like rash noted.. Vital Signs: 09:13 BP 123 / 73; Pulse 79; Resp 20 S; Temp 97.3(TE); Pulse Ox 99% on R/A; Weight 58.97 kg aa5 (R); Height 5 ft. 6 in. (167.64 cm) (R); 09:13 Body Mass Index 20.98 (58.97 kg, 167.64 cm) aa5 MDM: 09:19 Patient medically screened. jr8 10:25 Data reviewed: vital signs, nurses notes, and as a result, I will discharge patient. jr8 Data interpreted: Pulse oximetry: on room air is 99 %. Interpretation: normal. 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 ED course: Discussed with patient that we will put her on a tapered steroid pack. Needs to continue to follow-up with dermatology at this time. Patient good with this and will refollow-up.. Administered Medications: No medications were administered Disposition: 09/15 08:48 Co-signature as Attending Physician, Camila Carter MD I agree with the assessment and sp3 plan of care. Disposition Summary: 09/14/21 09:53 Discharge Ordered Location: Home jr8 Problem: new jr8 Symptoms: have improved jr8 Condition: Stable jr8 Diagnosis - Allergic contact dermatitis, unspecified cause jr8 Followup: jr8 - With: Private Physician - When: 2 - 3 days - Reason: Recheck today's complaints, Continuance of care, Re-evaluation by your physician Discharge Instructions: - Discharge Summary Sheet jr8 - Allergies, Adult jr8 - Contact Dermatitis jr8 Forms: - Medication Reconciliation Form jr8 - Thank You Letter jr8 - Antibiotic Education jr8 - Prescription Opioid Use jr8 Prescriptions: - Prednisone 20 mg Oral Tablet - take 2 tablets by ORAL route once daily for 5 days then 1 tablet for 5 days jr8 then half a table for 3 days; 17 tablet; Refills: 0, Product Selection Permitted - Cephalexin 500 mg Oral Capsule - take 1 capsule by ORAL route every 8 hours for 5 days; 15 capsule; Refills: 0, jr8 Product Selection Permitted Signatures: Abigail Leslie RN RN aa5 Carlos Melendez PA PA jr8 Camila Carter MD MD sp3
[2021-09-14 10:27] VITALS: BP 123/73; TEMP 97.3; O2SAT 99
== END 2021-09-14 10:16 | disposition home or self-care (01) ==
LOC: ER 08:59
DX: L23.9 Allergic contact dermatitis, unspecified cause (principal); Z88.0 Allergy status to penicillin; Z91.040 Latex allergy status; F17.210 Nicotine dependence, cigarettes, uncomplicated
CPT/HCPCS: 99281

== ENCOUNTER 2022-04-02 11:22 | Emergency (ER) | payer SELFPAY ==
--- NOTE | 2022-04-02 12:24 | ER ---
Nurse's Notes [facility] Name: Charlene Lora Age: 56 yrs Sex: Female : 1965 Arrival Date: 04/02/2022 Time: 11:23 Bed Waiting Private MD: Diagnosis: Rash and other nonspecific skin eruption Presentation: 04/02 12:05 Chief complaint: Patient states: Rash on JOSE LUIS arms and neck area; states unsure if its vg1 from fiberglass dust from last week or new comforter. Also states arms 'feel sore'. Denies throat soreness or SOB. Coronavirus screen: Vaccine status: Patient reports being unvaccinated. Client denies travel out of the [place] in the last 14 days. Ebola Screen: Patient denies exposure to infectious person. Patient denies travel to an Ebola-affected area in the 21 days before illness onset. Onset: The symptoms/episode began/occurred last week. Anaphylaxis evaluation, no signs or symptoms of anaphylaxis were noted. Initial Sepsis Screen: Does the patient meet any 2 criteria? No. Patient's initial sepsis screen is negative. Does the patient have a suspected source of infection? No. Patient's initial sepsis screen is negative. Risk Assessment: Do you want to hurt yourself or someone else? Patient reports no desire to harm self or others. Onset of symptoms was March 26, 2022. 12:05 Method Of Arrival: Ambulatory vg1 12:05 Acuity: YULIYA 4 vg1 Triage Assessment: 12:08 General: Appears uncomfortable, Behavior is calm, cooperative. Pain: Denies pain. Derm: vg1 Skin is intact, Rash noted that is itchy, on right arm, left arm and neck. Historical: - Allergies: 12:08 Latex, Natural Rubber; vg1 12:08 PENICILLINS; vg1 - Home Meds: 12:08 None [Active]; vg1 - PMHx: 12:08 None; vg1 - PSHx: 12:08 Hysterecomy; vg1 - Immunization history:: Client reports having NOT received the Covid vaccine. - Social history:: Smoking status: Patient reports the use of cigarette tobacco products, smokes one-half pack cigarettes per day. Screenin:05 Abuse screen: Denies threats or abuse. Denies injuries from another. Nutritional ww screening: No deficits noted. Tuberculosis screening: No symptoms or risk factors identified. Fall Risk None identified. Assessment: 14:05 Respiratory: Airway is patent Respiratory effort is even, unlabored. ww Vital Signs: 12:05 BP 119 / 75; Pulse 60; Resp 16; Temp 98.8(TE); Pulse Ox 100% ; Weight 58.97 kg; Height vg1 5 ft. 6 in. (167.64 cm); Pain 0/10; 12:05 Body Mass Index 20.98 (58.97 kg, 167.64 cm) vg1 ED Course: 11:23 Patient arrived in ED. am2 12:08 Triage completed. vg1 12:08 Arm band placed on. vg1 12:11 Daniel Albarran NP is PHCP. pm1 12:11 Jose Raul Colmenares MD is Attending Physician. pm1 14:05 No provider procedures requiring assistance completed. Patient did not have IV access ww during this emergency room visit. Administered Medications: 14:00 Drug: Tetanus-Diphtheria Toxoid Adult 0.5 ml {Advocacy Director: [employer]. Exp: ww 01/30/2024. Lot #: [id number]. } Route: IM; Site: left gluteus; 14:00 Drug: Decadron (dexamethasone) 10 mg Route: IM; Site: left deltoid; ww Outcome: :23 Discharge ordered by . pm1 14:05 Discharged to home ambulatory. ww 14:05 Condition: stable 14:05 Discharge instructions given to patient, Instructed on discharge instructions, follow up and referral plans. medication usage, safety practices, Demonstrated understanding of instructions, follow-up care, medications, Prescriptions given X 2. 14:06 Patient left the ED. ww Signatures: Daniel Albarran NP PRINCIPAL STATISTICAL PROGRAMMER pm1 Maryann Erickson am2 Bambi Caeg, RN RN vg1 Denise Hensley RN RN ww
--- NOTE | 2022-04-02 12:24 | EDPHYS ---
Physician Documentation [facility] Name: Charlene Lora Age: 56 yrs Sex: Female : 1965 Arrival Date: 04/02/2022 Time: 11:23 Bed Waiting Private MD: ED Physician Jose Raul Colmenares HPI: 04/02 12:23 This 56 yrs old Female presents to ER via Ambulatory with complaints of Rash, Allergic pm1 Reaction. 12:23 The patient's rash thought to be caused by Contact allergy. The rash is located on the pm1 chest, right arm and left arm. The rash can be described as raised, urticarial. Onset: The symptoms/episode began/occurred 1 week(s) ago. Associated signs and symptoms: Pertinent positives: itching, Pertinent negatives: burning sensation, difficulty breathing. Severity of symptoms: in the emergency department the symptoms are unchanged Pain is currently a 0 / 10. Treatment given at home: Benadryl. The patient has experienced similar episodes in the past, several times. The patient has not recently seen a physician. Patient attributes to possible exposure to fiberglass from work or due to new comforter. Historical: - Allergies: 12:08 Latex, Natural Rubber; vg1 12:08 PENICILLINS; vg1 - Home Meds: 12:08 None [Active]; vg1 - PMHx: 12:08 None; vg1 - PSHx: 12:08 Hysterecomy; vg1 - Immunization history:: Client reports having NOT received the Covid vaccine. - Social history:: Smoking status: Patient reports the use of cigarette tobacco products, smokes one-half pack cigarettes per day. ROS: 12:23 Constitutional: Negative for fever, chills, and weight loss, Cardiovascular: Negative pm1 for chest pain, palpitations, and edema, Respiratory: Negative for shortness of breath, cough, wheezing, and pleuritic chest pain. 12:23 MS/Extremity: Negative for injury and deformity, Neuro: Negative for headache, weakness, numbness, tingling, and seizure. 12:23 Skin: Positive for rash, of the chest, right arm and left arm. 12:23 All other systems are negative. Exam: 12:23 Constitutional: This is a well developed, well nourished patient who is awake, alert, pm1 and in no acute distress. Head/Face: Normocephalic, atraumatic. 12:23 Back: No spinal tenderness. No costovertebral tenderness. Full range of motion. 12:23 Eyes: Exam is negative for acute changes, Extraocular movements: no acute changes, Conjunctiva: no acute changes, no injection. 12:23 Cardiovascular: Exam negative for acute changes, Rate: normal, Rhythm: regular, Pulses: no pulse deficits are appreciated. 12:23 Respiratory: Exam negative for acute changes, respiratory distress, shortness of breath, Breath sounds: are clear throughout. 12:23 Skin: Appearance: normal except for affected area, consistent with urticaria, on the chest, right arm and left arm. 12:23 Neuro: Exam negative for acute changes, Orientation: is normal, Mentation: is normal, Motor: is normal, moves all fours. Vital Signs: 12:05 BP 119 / 75; Pulse 60; Resp 16; Temp 98.8(TE); Pulse Ox 100% ; Weight 58.97 kg; Height vg1 5 ft. 6 in. (167.64 cm); Pain 0/10; 12:05 Body Mass Index 20.98 (58.97 kg, 167.64 cm) vg1 MDM: 12:23 Data reviewed: vital signs. Data interpreted: Pulse oximetry: on room air is 100 %. pm1 Interpretation: normal. Counseling: I had a detailed discussion with the patient and/or guardian regarding: the historical points, exam findings, and any diagnostic results supporting the discharge/admit diagnosis, the need for outpatient follow up, to return to the emergency department if symptoms worsen or persist or if there are any questions or concerns that arise at home. 12:23 Patient medically screened. 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 Exp: ww 01/30/2024. Lot #: [id number]. } Route: IM; Site: left gluteus; 14:00 Drug: Decadron (dexamethasone) 10 mg Route: IM; Site: left deltoid; ww Disposition: 14:41 Co-signature as Attending Physician, Jose Raul Colmenares MD I agree with the assessment and kdr plan of care. Disposition Summary: 04/02/22 12:23 Discharge Ordered Location: Home pm1 Problem: new pm1 Symptoms: have improved pm1 Condition: Stable pm1 Diagnosis - Rash and other nonspecific skin eruption pm1 Followup: pm1 - With: Emergency Department - When: As needed - Reason: Worsening of condition Followup: pm1 - With: Private Physician - When: 2 - 3 days - Reason: Recheck today's complaints, Continuance of care, Re-evaluation by your physician Discharge Instructions: - Discharge Summary Sheet pm1 - Insect Bite, Adult pm1 - Rash, Adult pm1 Forms: - Medication Reconciliation Form pm1 - Thank You Letter pm1 - Antibiotic Education pm1 - Prescription Opioid Use pm1 Prescriptions: - Bactrim DS 800-160 mg Oral Tablet - take 1 tablet by ORAL route every 12 hours for 10 days; 20 tablet; Refills: 0, pm1 Product Selection Permitted - Prednisone 20 mg Oral Tablet - take 3 tablets by ORAL route once daily for 5 days; 15 tablet; Refills: 0, pm1 Product Selection Permitted Signatures: Jose Raul Colmenares MD MD kdr Marinas, Patrick, NP NEUROPHYSIOLOGIST pm1 Bambi Cage RN RN 1 Denise Hensley RN RN
[2022-04-02] MEDS ORDERED: dexAMETHasone 10 MG/ML VIAL ONE (13:55)
[2022-04-02] MEDS ORDERED: TETANUS & DIPHTHERIA TOX,ADULT 0.5 ML VIAL ONE (13:55)
[2022-04-02 14:34] VITALS: BP 119/75; TEMP 98.8; O2SAT 100
== END 2022-04-02 14:06 | disposition home or self-care (01) ==
LOC: ER 11:22
DX: R21 Rash and other nonspecific skin eruption (principal); F17.210 Nicotine dependence, cigarettes, uncomplicated; Z23 Encounter for immunization; Z88.0 Allergy status to penicillin; Z91.040 Latex allergy status; Z91.048 Other nonmedicinal substance allergy status
CPT/HCPCS: 90471; 90714; 96372; 99283; J1100

== ENCOUNTER 2024-05-15 13:49 | Emergency (ER) | payer SELFPAY ==
--- NOTE | 2024-05-15 14:01 | ER ---
Nurse's Notes [facility] Name: Charlene Lora Age: 58 yrs Sex: Female : 1965 Arrival Date: 05/15/2024 Time: 13:49 Bed IW2 Private MD: Diagnosis: Rash and other nonspecific skin eruption Presentation: 05/15 13:55 Chief complaint: Patient states: rash to right rib and left ribs. itchy. pt is worried mb9 that she has shingles. Coronavirus screen: At this time, the client does not indicate any symptoms associated with coronavirus-19. Ebola Screen: No symptoms or risks identified at this time. Initial Sepsis Screen: Does the patient meet any 2 criteria? No. Patient's initial sepsis screen is negative. Does the patient have a suspected source of infection? No. Patient's initial sepsis screen is negative. Risk Assessment: Do you want to hurt yourself or someone else? Patient reports no desire to harm self or others. Onset of symptoms was May 04, 2024. 13:55 Acuity: YULIYA 4 mb9 13:55 Method Of Arrival: Ambulatory mb9 Triage Assessment: 13:57 General: Appears in no apparent distress. comfortable, Behavior is calm, cooperative. mb9 Pain: Complains of pain in diaphragm. Derm: Rash noted that is itchy, papular, red, raised, on left mid back and diaphragm. Historical: - Allergies: 13:59 Latex; mb9 13:59 PENICILLINS; mb9 - PSHx: 13:59 Hysterecomy; mb9 - Immunization history:: Adult Immunizations not up to date. - Infectious Disease History:: Denies. - Social history:: Smoking status: Patient reports the use of cigarette tobacco products. Screenin:58 [facility] ED Fall Risk Assessment (Adult) History of falling in the last 3 months, mb9 including since admission No falls in past 3 months (0 pts) Confusion or Disorientation No (0 pts) Intoxicated or Sedated No (0 pts) Impaired Gait No (0 pts) Mobility Assist Device Used No (0 pt) Altered Elimination No (0 pt) Score/Fall Risk Level 0 - 2 = Low Risk Oriented to surroundings, Maintained a safe environment, Educated pt \T\ family on fall prevention, incl call for assistance when getting out of bed, Assessed \T\ reinforced patient's understanding of fall precautions. Abuse screen: Denies threats or abuse. Denies injuries from another. Nutritional screening: No deficits noted. Tuberculosis screening: No symptoms or risk factors identified. Vital Signs: 13:54 BP 144 / 83; Pulse 87; Resp 18; Temp 97.5(TE); Pulse Ox 98% ; mb9 ED Course: 13:52 Patient arrived in ED. mr 13:52 [facility] sb4 13:52 Jose Mensah MD is Attending Physician. sb4 13:55 Arm band placed on left wrist. mb9 13:57 Triage completed. mb9 13:58 Patient has correct armband on for positive identification. mb9 13:59 No provider procedures requiring assistance completed. mb9 14:00 Provided Education on: follow up. mb9 14:00 Patient did not have IV access during this emergency room visit. mb9 Administered Medications: No medications were administered Medication: 13:58 VIS not applicable for this client. mb9 Outcome: 13:59 Condition: stable mb9 14:00 Discharged to home ambulatory, mb9 14:01 Discharge ordered by . sb4 14:04 Discharge instructions given to patient, Instructed on discharge instructions, follow mb9 up and referral plans. medication usage, Demonstrated understanding of instructions, follow-up care, medications, Prescriptions given X 1, 14:04 Patient left the ED. mb9 Signatures: Desiree Camacho, Reg Reg Tracy Montiel PA-C PA-C sb4 Desiree Jacobs, RN RN mb9
--- NOTE | 2024-05-15 14:02 | EDPHYS ---
Physician Documentation [facility] Name: Charlene Lora Age: 58 yrs Sex: Female : 1965 Arrival Date: 05/15/2024 Time: 13:49 Bed IW2 Private MD: ED Physician Jose Mensah HPI: 05/15 14:04 This 58 yrs old Female presents to ER via Ambulatory with complaints of Rash. sb4 14:04 The patient's rash thought to be caused by an unknown cause. The rash is located on the sb4 right breast underfold, left flank, mons pubis, right paul. The rash can be described as erythematous, raised. Onset: The symptoms/episode began/occurred 1 week(s) ago. Treatment given at home: Benadryl, OTC lotion/cream. The patient has not recently seen a physician. Historical: - Allergies: 13:59 Latex; mb9 13:59 PENICILLINS; mb9 - PSHx: 13:59 Hysterecomy; mb9 - Immunization history:: Adult Immunizations not up to date. - Infectious Disease History:: Denies. - Social history:: Smoking status: Patient reports the use of cigarette tobacco products. ROS: 14:04 Constitutional: Negative for fever, chills, and weight loss, sb4 14:04 Skin: Positive for rash, 14:04 All other systems are negative, Exam: 14:04 Constitutional: This is a well developed, well nourished patient who is awake, alert, sb4 and in no acute distress. Head/Face: Normocephalic, atraumatic. Eyes: Extra-ocular motions intact. Periorbital areas with no swelling, redness, or edema. ENT: Mucous membranes moist. 14:04 Skin: rash a mild rash is noted, rash can be described as erythematous, macular, nonspecific, raised, right breast underfold, left flank, mons pubis, right paul, Vital Signs: 13:54 BP 144 / 83; Pulse 87; Resp 18; Temp 97.5(TE); Pulse Ox 98% ; mb9 MDM: 13:52 Patient medically screened. sb4 14:04 Data reviewed: vital signs, nurses notes, and as a result, I will discharge patient. sb4 Counseling: I had a detailed discussion with the patient and/or guardian regarding the historical points, exam findings, and any diagnostic results supporting the discharge/admit diagnosis, to return to the emergency department if symptoms worsen or persist or if there are any questions or concerns that arise at home. Administered Medications: No medications were administered Disposition Summary: 05/15/24 14:01 Discharge Ordered Notes: Location: Home sb4 Problem: new sb4 Symptoms: are unchanged sb4 Condition: Stable sb4 Diagnosis - Rash and other nonspecific skin eruption sb4 Followup: sb4 - With: Private Physician - When: 5 - 6 days - Reason: Wound Recheck Discharge Instructions: - Discharge Summary Sheet sb4 - Rash, Adult, [id number] sb4 Forms: - Patient Portal Instructions sb4 - Leadership Thank You Letter sb4 Prescriptions: - Prednisone 20 mg Oral Tablet - take 2 tablets ORAL route once daily for 5 days; 10 tablet; Refills: 0, Product sb4 Selection Permitted Signatures: Tracy Montiel PA-C PA-C sb4 Desiree Jacobs RN RN mb9
[2024-05-15 14:19] VITALS: BP 144/83; TEMP 97.5; O2SAT 98
== END 2024-05-15 14:04 | disposition home or self-care (01) ==
LOC: ER 13:49
DX: R21 Rash and other nonspecific skin eruption (principal); Z88.0 Allergy status to penicillin; Z91.040 Latex allergy status